=== PATIENT | female | born 1965 | race Asian ===

== ENCOUNTER 2019-04-30 20:14 | Inpatient (IN) | payer MEDICAID ==
[~2019-04-30] VITALS: Ht 167.6 cm; Wt 182.5 kg
[2019-04-30] MEDS ORDERED: DILTIAZEM HCL 5MG/ML 5ML VIAL IV ONE ×2 (21:00→21:45)
[2019-04-30 21:28] LABS: BASOPHILS % 0.5 % (0.0-2.0); EOSINOPHILS % 0.3 % (0.0-5.0); HEMATOCRIT. 52.3 % (36.0-48.0); HEMOGLOBIN. 16.8 g/dL (12.0-16.0); LYMPHOCYTES % 9.1 % (20.0-50.0); MEAN CORPUSCULAR HEMOGLOBIN 27.3 pg (28.0-32.0); MEAN PLATELET VOLUME 8.9 fl (7.4-10.4); NEUTROPHILS % 78.1 % (40.0-76.0); PLATELET 161 x1000/uL (130-400); RED BLOOD CELL COUNT 6.16 mill/uL (4.2-5.4); RED CELL DISTRIBUTION WIDTH 18.9 % (11.6-14.6)
[2019-04-30 21:33] LABS: CHLORIDE 97 mEq/L (98-107)
[2019-04-30] MEDS ORDERED: DILTIAZEM HCL 125 MG in DEXT 5% WATER 100 ML IV ONE ×2 (21:45→22:00)
[2019-04-30] MEDS ORDERED: ASPIRIN 81MG TABLET PO SCH (23:32)
[2019-04-30] MEDS ORDERED: METOPROLOL TARTRATE 5MG/5ML VIAL IV STA (23:37)
[2019-04-30] MEDS ORDERED: SODIUM CHLORIDE 0.9% 500 ML IV ONE (23:45)
[2019-04-30] MEDS ORDERED: DIGOXIN 500MCG/2ML AMP IV ONE (23:45)
[2019-05-01] VITALS (69 sets, daily range): BP systolic 98–195; BP diastolic 49–135
[2019-05-01] MEDS ORDERED: DILT30TA38 MT (04:03)
[2019-05-01] MEDS ORDERED: ASPI-1393 PO (04:03)
[2019-05-01] MEDS ORDERED: FERR-71 PO (04:03)
[2019-05-01] MEDS ORDERED: FUROSEMIDE 40MG/4ML VIAL IVP SCH (05:30)
[2019-05-01 08:35] LABS: HEMOGLOBIN. 15.6 g/dL (12.0-16.0); MEAN CORPUSCULAR HEMOGLOBIN 27.4 pg (28.0-32.0); MEAN CORPUSCULAR VOLUME 86.2 fL (81.0-99.0); MEAN PLATELET VOLUME 8.9 fl (7.4-10.4); PLATELET 145 x1000/uL (130-400); RED BLOOD CELL COUNT 5.69 mill/uL (4.2-5.4); RED CELL DISTRIBUTION WIDTH 18.6 % (11.6-14.6)
[2019-05-01 08:38] LABS: INR 1.4; PROTHROMBIN TIME 14.7 sec (9.6-11.0)
[2019-05-01 08:41] LABS: CHLORIDE 98 mEq/L (98-107)
[2019-05-01] MEDS: FUROSEMIDE 40MG/4ML VIAL IVP SCH ×2 (08:49→17:22)
[2019-05-01 08:51] LABS: LDL CHOLESTEROL 81 mg/dL (5-100)
[2019-05-01 08:54] LABS: CREATINE KINASE 81 IU/L (26-192); CREATINE KINASE MB FRACTION 2.1 ng/mL (0.5-3.6); HDL CHOLESTEROL 24 mg/dL (40-59)
[2019-05-01] MEDS ORDERED: ENOXAPARIN 30MG/0.3ML SYR SUBCUT SCH (09:00)
[2019-05-01] MEDS ORDERED: METOPROLOL TARTRATE 25MG TABLET PO SCH (09:00)
[2019-05-01 13:31] LABS: NUCLEATED RED BLOOD CELLS 2 /100 WBC
[2019-05-01 13:32] LABS: PLATELET ESTIMATE NORMAL
[2019-05-01] MEDS: DILTIAZEM HCL 125 MG in DEXT 5% WATER 100 ML IV PRN (15:12)
[2019-05-01 17:33] LABS: BG BASE EXCESS 5.2 mmol/L (-2.0-2.0); BG CARBOXYHEMOGLOBIN 1.5 % (0.5-1.5); BG DEOXYHEMOGLOBIN 3.6 % (0.0-5.0); BG FRACTION INSPIRED OXYGEN 80; BG HCO3 ACT 39.7 mmol/L (22.0-26.0); BG METHEMOGLOBIN 0.6 % (0.0-1.5); BG OXYGEN SATURATION 96.3 % (92.0-98.5); BG OXYHEMOGLOBIN 94.3 % (94.0-97.0); BG PH 7.138 (7.350-7.450); BG PO2 98.3 mmHg (75.0-100.0); BG SAMPLE SITE RIGHT RADIAL; BG TOTAL HEMOGLOBIN 16.5 g/dL (12.0-18.0); BG VENT MODE MASK - SIMPLE
[2019-05-01] MEDS: METOPROLOL TARTRATE 50MG TABLET PO SCH (20:05)
[2019-05-01 20:08] LABS: BG BASE EXCESS 3.9 mmol/L (-2.0-2.0); BG BILEVEL POS AIRWAY PRESSURE 20/5; BG CARBOXYHEMOGLOBIN 1.7 % (0.5-1.5); BG DEOXYHEMOGLOBIN 0.8 % (0.0-5.0); BG FRACTION INSPIRED OXYGEN 50; BG HCO3 ACT 31.2 mmol/L (22.0-26.0); BG METHEMOGLOBIN 0.5 % (0.0-1.5); BG OXYGEN SATURATION 99.2 % (92.0-98.5); BG PCO2 57.6 mmHg (35.0-45.0); BG PH 7.352 (7.350-7.450); BG PO2 148.7 mmHg (75.0-100.0); BG SAMPLE SITE RIGHT RADIAL; BG TOTAL HEMOGLOBIN 15.5 g/dL (12.0-18.0); BG VENT MODE MASK - BIPAP; BG VENT RATE 22 set
[2019-05-01] MEDS ORDERED: NOREPINEPHRINE 16 MG in DEXT 5% WATER 234 ML IV PRN (20:45)
[2019-05-01] MEDS ORDERED: PROPOFOL 10MG/ML 100ML 100 ML IV PRN (20:45)
[2019-05-01] MEDS: ENOXAPARIN 40MG/0.4ML SYR SUBCUT SCH (21:37)
[2019-05-02] VITALS (98 sets, daily range): BP systolic 66–160; BP diastolic 28–132
[2019-05-02 02:31] LABS: BG BASE EXCESS 6.2 mmol/L (-2.0-2.0); BG BILEVEL POS AIRWAY PRESSURE 20/5; BG CARBOXYHEMOGLOBIN 2.2 % (0.5-1.5); BG DEOXYHEMOGLOBIN 1.9 % (0.0-5.0); BG FRACTION INSPIRED OXYGEN 50; BG HCO3 ACT 36.8 mmol/L (22.0-26.0); BG METHEMOGLOBIN 0.5 % (0.0-1.5); BG OXYHEMOGLOBIN 95.4 % (94.0-97.0); BG PCO2 83.3 mmHg (35.0-45.0); BG PH 7.263 (7.350-7.450); BG PO2 106.7 mmHg (75.0-100.0); BG SAMPLE SITE RIGHT RADIAL; BG TOTAL HEMOGLOBIN 15.6 g/dL (12.0-18.0); BG VENT MODE MASK - BIPAP; BG VENT RATE 22 set
[2019-05-02] MEDS: DILTIAZEM HCL 125 MG in DEXT 5% WATER 100 ML IV PRN ×2 (05:17→23:38)
[2019-05-02 05:40] LABS: HEMATOCRIT. 46.4 % (36.0-48.0); HEMOGLOBIN. 14.7 g/dL (12.0-16.0); MEAN CORPUSCULAR HEMOGLOBIN 27.4 pg (28.0-32.0); MEAN CORPUSCULAR VOLUME 86.2 fL (81.0-99.0); MEAN PLATELET VOLUME 9.8 fl (7.4-10.4); PLATELET 135 x1000/uL (130-400); RED BLOOD CELL COUNT 5.38 mill/uL (4.2-5.4); RED CELL DISTRIBUTION WIDTH 18.7 % (11.6-14.6)
[2019-05-02 07:58] LABS: BG BILEVEL POS AIRWAY PRESSURE 20/5; BG CARBOXYHEMOGLOBIN 1.8 % (0.5-1.5); BG FRACTION INSPIRED OXYGEN 50; BG HCO3 ACT 38.8 mmol/L (22.0-26.0); BG METHEMOGLOBIN 0.6 % (0.0-1.5); BG OXYHEMOGLOBIN 96.6 % (94.0-97.0); BG PH 7.277 (7.350-7.450); BG PO2 144.8 mmHg (75.0-100.0); BG SAMPLE SITE RIGHT RADIAL; BG TOTAL HEMOGLOBIN 15.7 g/dL (12.0-18.0); BG VENT MODE MASK - BIPAP; BG VENT RATE 22 set
[2019-05-02] MEDS: FUROSEMIDE 40MG/4ML VIAL IVP SCH ×2 (08:16→16:11)
[2019-05-02] MEDS: ENOXAPARIN 40MG/0.4ML SYR SUBCUT SCH ×2 (08:17→22:16)
[2019-05-02] MEDS: METOPROLOL TARTRATE 50MG TABLET PO SCH ×2 (08:17→21:00)
[2019-05-02 08:27] LABS: NUCLEATED RED BLOOD CELLS 1 /100 WBC
[2019-05-02 08:28] LABS: PLATELET ESTIMATE NORMAL
[2019-05-02] MEDS ORDERED: IPRATROPIUM BROMIDE (0.02%) 0.5MG/2.5ML NEB HHN PRN (10:00)
[2019-05-02 11:31] LABS: BG BASE EXCESS 11.1 mmol/L (-2.0-2.0); BG BILEVEL POS AIRWAY PRESSURE 20/5; BG CARBOXYHEMOGLOBIN 1.3 % (0.5-1.5); BG DEOXYHEMOGLOBIN 1.4 % (0.0-5.0); BG FRACTION INSPIRED OXYGEN 35; BG HCO3 ACT 41.2 mmol/L (22.0-26.0); BG METHEMOGLOBIN 0.2 % (0.0-1.5); BG OXYGEN SATURATION 98.6 % (92.0-98.5); BG OXYHEMOGLOBIN 97.1 % (94.0-97.0); BG PCO2 81.4 mmHg (35.0-45.0); BG PH 7.322 (7.350-7.450); BG PO2 128.8 mmHg (75.0-100.0); BG SAMPLE SITE RIGHT RADIAL; BG TOTAL HEMOGLOBIN 15.3 g/dL (12.0-18.0); BG VENT MODE MASK - BIPAP; BG VENT RATE 22 set
[2019-05-02] MEDS: IPRATROPIUM BROMIDE (0.02%) 0.5MG/2.5ML NEB HHN SCH ×2 (15:56→20:44)
[2019-05-03] VITALS (100 sets, daily range): BP systolic 72–147; BP diastolic 17–94
[2019-05-03] MEDS: IPRATROPIUM BROMIDE (0.02%) 0.5MG/2.5ML NEB HHN SCH ×4 (02:23→20:06)
[2019-05-03 05:28] LABS: BASOPHILS % 0.5 % (0.0-2.0); HEMATOCRIT. 44.8 % (36.0-48.0); HEMOGLOBIN. 14.2 g/dL (12.0-16.0); LYMPHOCYTES % 15.2 % (20.0-50.0); MEAN CORPUSCULAR VOLUME 84.9 fL (81.0-99.0); MEAN PLATELET VOLUME 9.5 fl (7.4-10.4); MONOCYTES % 13.9 % (2.0-8.0); NEUTROPHILS % 68.4 % (40.0-76.0); PLATELET 127 x1000/uL (130-400); RED BLOOD CELL COUNT 5.28 mill/uL (4.2-5.4); RED CELL DISTRIBUTION WIDTH 18.4 % (11.6-14.6)
[2019-05-03 05:51] LABS: PHOSPHORUS 2.5 mg/dL (2.5-4.9)
[2019-05-03] MEDS: ENOXAPARIN 40MG/0.4ML SYR SUBCUT SCH (09:10)
[2019-05-03] MEDS: METOPROLOL TARTRATE 50MG TABLET PO SCH ×2 (09:11→20:32)
[2019-05-03] MEDS: FUROSEMIDE 40MG/4ML VIAL IVP SCH (09:11)
[2019-05-03 09:54] LABS: BG BASE EXCESS 9.9 mmol/L (-2.0-2.0); BG CARBOXYHEMOGLOBIN 1.7 % (0.5-1.5); BG DEOXYHEMOGLOBIN 5.8 % (0.0-5.0); BG FRACTION INSPIRED OXYGEN 40; BG HCO3 ACT 36.8 mmol/L (22.0-26.0); BG METHEMOGLOBIN 0.5 % (0.0-1.5); BG OXYGEN SATURATION 94.1 % (92.0-98.5); BG PCO2 57.3 mmHg (35.0-45.0); BG PH 7.425 (7.350-7.450); BG PO2 68.6 mmHg (75.0-100.0); BG SAMPLE SITE RIGHT RADIAL; BG VENT MODE NASAL CANNULA
[2019-05-03] MEDS: DILTIAZEM HCL 125 MG in DEXT 5% WATER 100 ML IV PRN (11:58)
[2019-05-03] MEDS ORDERED: ENOXAPARIN 120MG/0.8ML SYR SUBCUT NR (15:30)
[2019-05-03] MEDS: FUROSEMIDE 100MG/10ML VIAL IV SCH (17:08)
[2019-05-03] MEDS: ENOXAPARIN 150MG/ML SYR SUBCUT SCH (20:33)
[2019-05-04] VITALS (93 sets, daily range): BP systolic 50–174; BP diastolic 19–129
[2019-05-04] MEDS: IPRATROPIUM BROMIDE (0.02%) 0.5MG/2.5ML NEB HHN SCH ×4 (02:23→20:00)
[2019-05-04 04:56] LABS: BASOPHILS % 0.9 % (0.0-2.0); HEMATOCRIT. 46.7 % (36.0-48.0); LYMPHOCYTES % 17.6 % (20.0-50.0); MEAN CORPUSCULAR HEMOGLOBIN 27.2 pg (28.0-32.0); MEAN CORPUSCULAR VOLUME 84.6 fL (81.0-99.0); MONOCYTES % 13.9 % (2.0-8.0); NEUTROPHILS % 63.6 % (40.0-76.0); PLATELET 140 x1000/uL (130-400); RED BLOOD CELL COUNT 5.52 mill/uL (4.2-5.4); RED CELL DISTRIBUTION WIDTH 18.6 % (11.6-14.6)
[2019-05-04 05:00] LABS: CHLORIDE 90 mEq/L (98-107)
[2019-05-04] MEDS: FUROSEMIDE 100MG/10ML VIAL IV SCH ×2 (09:15→18:26)
[2019-05-04] MEDS: ENOXAPARIN 150MG/ML SYR SUBCUT SCH (09:16)
[2019-05-04] MEDS: METOPROLOL TARTRATE 50MG TABLET PO SCH (09:16)
[2019-05-04] MEDS: DILTIAZEM HCL 125 MG in DEXT 5% WATER 100 ML IV PRN (10:33)
[2019-05-04] MEDS: DILTIAZEM HCL 60MG TABLET PO SCH ×2 (18:27→23:33)
[2019-05-05] VITALS (44 sets, daily range): BP systolic 96–194; BP diastolic 25–130
[2019-05-05] MEDS: IPRATROPIUM BROMIDE (0.02%) 0.5MG/2.5ML NEB HHN SCH ×4 (04:00→20:40)
[2019-05-05 05:21] LABS: HEMATOCRIT. 49.4 % (36.0-48.0); HEMOGLOBIN. 15.8 g/dL (12.0-16.0); MEAN CORPUSCULAR HEMOGLOBIN 27.1 pg (28.0-32.0); MEAN CORPUSCULAR VOLUME 84.6 fL (81.0-99.0); MEAN PLATELET VOLUME 9.1 fl (7.4-10.4); PLATELET 149 x1000/uL (130-400); RED BLOOD CELL COUNT 5.84 mill/uL (4.2-5.4); RED CELL DISTRIBUTION WIDTH 18.2 % (11.6-14.6)
[2019-05-05] MEDS: DILTIAZEM HCL 60MG TABLET PO SCH ×4 (05:40→23:54)
[2019-05-05 08:49] LABS: PLATELET ESTIMATE NORMAL
[2019-05-05] MEDS: FUROSEMIDE 100MG/10ML VIAL IV SCH ×2 (10:16→17:20)
[2019-05-05] MEDS: APIXABAN 5 MG TABLET PO SCH (20:17)
[2019-05-06] VITALS (14 sets, daily range): BP systolic 107–154; BP diastolic 53–89
[2019-05-06] MEDS: IPRATROPIUM BROMIDE (0.02%) 0.5MG/2.5ML NEB HHN SCH ×4 (02:19→20:11)
[2019-05-06 05:45] LABS: BASOPHILS % 0.6 % (0.0-2.0); EOSINOPHILS % 5.9 % (0.0-5.0); HEMATOCRIT. 50.6 % (36.0-48.0); HEMOGLOBIN. 16.2 g/dL (12.0-16.0); LYMPHOCYTES % 22.1 % (20.0-50.0); MEAN CORPUSCULAR HEMOGLOBIN 27.1 pg (28.0-32.0); MEAN CORPUSCULAR VOLUME 84.9 fL (81.0-99.0); MEAN PLATELET VOLUME 9.2 fl (7.4-10.4); MONOCYTES % 12.9 % (2.0-8.0); NEUTROPHILS % 58.5 % (40.0-76.0); PLATELET 149 x1000/uL (130-400); RED BLOOD CELL COUNT 5.97 mill/uL (4.2-5.4); RED CELL DISTRIBUTION WIDTH 18.1 % (11.6-14.6)
[2019-05-06 05:48] LABS: CHLORIDE 87 mEq/L (98-107)
[2019-05-06] MEDS: DILTIAZEM HCL 60MG TABLET PO SCH (06:29)
[2019-05-06] MEDS: FUROSEMIDE 100MG/10ML VIAL IV SCH ×2 (08:33→16:08)
[2019-05-06] MEDS: APIXABAN 5 MG TABLET PO SCH ×2 (08:33→20:56)
[2019-05-06] MEDS ORDERED: DILTIAZEM HCL 300MG CAPSULE SR 24HR PO SCH (09:00)
[2019-05-06] MEDS ORDERED: APIX5TAB PO (09:46)
[2019-05-06] MEDS ORDERED: DILT300C35 PO (09:46)
[2019-05-06] MEDS ORDERED: FURO40TA5 MT ×2 (09:46→10:30)
[2019-05-06] MEDS: DILTIAZEM HCL 180MG CAPSULE CD 24HR PO SCH (11:26)
[2019-05-07] VITALS: BP 136/92
[2019-05-07] MEDS: IPRATROPIUM BROMIDE (0.02%) 0.5MG/2.5ML NEB HHN SCH ×4 (01:31→20:11)
[2019-05-07 02:00] VITALS: BP 136/91
[2019-05-07 04:00] VITALS: BP 119/61
[2019-05-07 08:00] VITALS: BP 128/60
[2019-05-07] MEDS: FUROSEMIDE 100MG/10ML VIAL IV SCH ×2 (09:22→19:24)
[2019-05-07] MEDS: APIXABAN 5 MG TABLET PO SCH ×2 (09:22→22:02)
[2019-05-07] MEDS: DILTIAZEM HCL 180MG CAPSULE CD 24HR PO SCH (09:27)
[2019-05-07 20:27] VITALS: BP 123/71
[2019-05-07 22:00] VITALS: BP 113/72
[2019-05-08] VITALS (12 sets, daily range): BP systolic 116–143; BP diastolic 68–95
[2019-05-08] MEDS: IPRATROPIUM BROMIDE (0.02%) 0.5MG/2.5ML NEB HHN SCH ×4 (01:46→19:48)
[2019-05-08] MEDS: APIXABAN 5 MG TABLET PO SCH ×2 (09:03→20:29)
[2019-05-08] MEDS: FUROSEMIDE 100MG/10ML VIAL IV SCH ×2 (09:03→17:14)
[2019-05-08] MEDS: DILTIAZEM HCL 180MG CAPSULE CD 24HR PO SCH (09:06)
[2019-05-08] MEDS ORDERED: DIGOXIN 500MCG/2ML AMP IV NR (12:15)
[2019-05-09] VITALS (13 sets, daily range): BP systolic 101–155; BP diastolic 45–115
[2019-05-09] MEDS: IPRATROPIUM BROMIDE (0.02%) 0.5MG/2.5ML NEB HHN SCH ×4 (01:10→21:54)
[2019-05-09] MEDS: FUROSEMIDE 100MG/10ML VIAL IV SCH ×2 (08:17→17:01)
[2019-05-09] MEDS: APIXABAN 5 MG TABLET PO SCH ×2 (08:19→20:40)
[2019-05-09] MEDS: DILTIAZEM HCL 180MG CAPSULE CD 24HR PO SCH (08:19)
[2019-05-09] MEDS ORDERED: DIGOXIN 500MCG/2ML AMP IV ONE (12:45)
[2019-05-09] MEDS: DILTIAZEM HCL 120MG CAPSULE CD 24HR PO SCH (20:41)
[2019-05-10] VITALS (11 sets, daily range): BP systolic 90–157; BP diastolic 63–92
[2019-05-10] MEDS: IPRATROPIUM BROMIDE (0.02%) 0.5MG/2.5ML NEB HHN SCH ×4 (02:21→20:20)
[2019-05-10 06:51] LABS: BASOPHILS % 0.6 % (0.0-2.0); EOSINOPHILS % 3.3 % (0.0-5.0); HEMATOCRIT. 53.7 % (36.0-48.0); HEMOGLOBIN. 17.2 g/dL (12.0-16.0); MEAN CORPUSCULAR HEMOGLOBIN 27.2 pg (28.0-32.0); MEAN CORPUSCULAR VOLUME 84.6 fL (81.0-99.0); MEAN PLATELET VOLUME 9.5 fl (7.4-10.4); MONOCYTES % 11.2 % (2.0-8.0); NEUTROPHILS % 67.9 % (40.0-76.0); PLATELET 180 x1000/uL (130-400); RED BLOOD CELL COUNT 6.34 mill/uL (4.2-5.4)
[2019-05-10] MEDS: FUROSEMIDE 100MG/10ML VIAL IV SCH ×2 (08:52→17:21)
[2019-05-10] MEDS: DILTIAZEM HCL 120MG CAPSULE CD 24HR PO SCH ×2 (08:54→21:28)
[2019-05-10] MEDS: APIXABAN 5 MG TABLET PO SCH ×2 (08:54→21:27)
[2019-05-11] VITALS: BP 133/88
== END 2019-05-11 00:29 | DRG 133 ==
LOC: ER 21:42 → MICUNO 23:39 → EDBEDREQSVC 23:42 → EDBEDREQTM 23:42 → ENRESERV 23:52 → 3WST 05-06 05:29
PROVIDERS: ADMIT Internal Medicine; ATTEND Internal Medicine
PROC: 5A09357 Assistance with Respiratory Ventilation, Less than 24 Consecutive Hours, Continuous Positive Airway Pressure (ICD-10-PCS; principal; 2019-05-01)
PROC: 5A09357 Assistance with Respiratory Ventilation, Less than 24 Consecutive Hours, Continuous Positive Airway Pressure (ICD-10-PCS; 2019-05-02)
PROC: 5A09357 Assistance with Respiratory Ventilation, Less than 24 Consecutive Hours, Continuous Positive Airway Pressure (ICD-10-PCS; 2019-05-03)
PROC: 5A09357 Assistance with Respiratory Ventilation, Less than 24 Consecutive Hours, Continuous Positive Airway Pressure (ICD-10-PCS; 2019-05-04)
PROC: 5A09357 Assistance with Respiratory Ventilation, Less than 24 Consecutive Hours, Continuous Positive Airway Pressure (ICD-10-PCS; 2019-05-05)
PROC: 5A09357 Assistance with Respiratory Ventilation, Less than 24 Consecutive Hours, Continuous Positive Airway Pressure (ICD-10-PCS; 2019-05-06)
DX: J96.02 Acute respiratory failure with hypercapnia (principal); I50.33 Acute on chronic diastolic (congestive) heart failure; E87.2 Acidosis; I27.20 Pulmonary hypertension, unspecified; D68.9 Coagulation defect, unspecified; E66.2 Morbid (severe) obesity with alveolar hypoventilation; I47.1 Supraventricular tachycardia; D64.9 Anemia, unspecified; E80.6 Other disorders of bilirubin metabolism; R20.0 Anesthesia of skin; I48.2 Chronic atrial fibrillation; M19.90 Unspecified osteoarthritis, unspecified site; N92.0 Excessive and frequent menstruation with regular cycle; Z82.49 Family history of ischemic heart disease and other diseases of the circulatory system; Z79.899 Other long term (current) drug therapy; Z68.44 Body mass index [BMI] 60.0-69.9, adult
CPT/HCPCS: 36415; 36600; 71045; 78580; 80048; 80061; 82375; 82550; 82553; 82805; 83735; 83880; 84100; 84443; 84484; 85379; 93005; 93306; 93970; 94640; 94660; 96365; 96375; 96376; 97110; 97162; 97166; 97530; 97535; 99285; J1160; J1650; J1940; J3490; J7060; A4315

== ENCOUNTER 2019-06-13 15:32 | Inpatient (IN) | payer MEDICAID ==
[~2019-06-13] VITALS: Ht 167.6 cm; Wt 196.0 kg
[~2019-06-13 15:32] MED LIST: APIX5TAB PO; DILT300C35 PO; FURO40TA5 MT
[2019-06-13 19:30] LABS: CHLORIDE 97 mEq/L (98-107)
[2019-06-13 19:31] LABS: BASOPHILS % 0.8 % (0.0-2.0); EOSINOPHILS % 2.1 % (0.0-5.0); HEMATOCRIT. 43.3 % (36.0-48.0); LYMPHOCYTES % 23.6 % (20.0-50.0); MEAN CORPUSCULAR HEMOGLOBIN 27.5 pg (28.0-32.0); MEAN PLATELET VOLUME 8.9 fl (7.4-10.4); MONOCYTES % 6.2 % (2.0-8.0); NEUTROPHILS % 67.3 % (40.0-76.0); PLATELET 229 x1000/uL (130-400); RED CELL DISTRIBUTION WIDTH 17.2 % (11.6-14.6)
[2019-06-13 19:32] LABS: INR 1.1; PARTIAL THROMBOPLASTIN TIME 30.2 sec (23.4-31.0); PROTHROMBIN TIME 11.1 sec (9.6-11.0)
[2019-06-13 19:41] LABS: B-HCG QUANTITATIVE < 1 mIU/mL (<3)
[2019-06-13] MEDS ORDERED: HYDROCODONE/ACETAMINOPHEN 5/325MG TABLET PO PRN (22:00)
[2019-06-13] MEDS ORDERED: ONDANSETRON HCL 4MG/2ML INJ IV PRN (22:00)
[2019-06-13] MEDS ORDERED: MAGNESIUM/ALUMINUM HYDROXIDE/SIMETHICONE 30ML UDC PO PRN (22:00)
[2019-06-13] MEDS ORDERED: CLONIDINE 0.1MG TABLET PO PRN (22:00)
[2019-06-13] MEDS ORDERED: IPRATROPIUM/ALBUTEROL 0.5-3(2.5)MG/3ML NEB NEB PRN (22:00)
[2019-06-13] MEDS ORDERED: ACETAMINOPHEN 325MG TABLET PO PRN (22:00)
[2019-06-13] MEDS ORDERED: DOCUSATE SODIUM 100MG CAPSULE PO PRN (22:00)
[2019-06-14] VITALS: BP 111/78
[2019-06-14] MEDS ORDERED: IPRA3AMP9 HHN (01:15)
[2019-06-14] MEDS ORDERED: FURO20TA4 PO (01:15)
[2019-06-14] MEDS ORDERED: DILT120T13 PO (01:15)
[2019-06-14 01:30] LABS: CHLORIDE 97 mEq/L (98-107)
[2019-06-14 01:36] LABS: TOTAL IRON BINDING CAPACITY 328 ug/dL (250-450)
[2019-06-14 01:38] LABS: CREATINE KINASE 94 IU/L (26-192)
[2019-06-14 01:41] LABS: CREATINE KINASE MB FRACTION 1.6 ng/mL (0.5-3.6)
[2019-06-14] MEDS ORDERED: FERR325T6 PO (01:47)
[2019-06-14 04:00] VITALS: BP 108/77
[2019-06-14 07:00] LABS: BASOPHILS % 0.6 % (0.0-2.0); EOSINOPHILS % 2.2 % (0.0-5.0); HEMATOCRIT. 43.8 % (36.0-48.0); HEMOGLOBIN. 14.1 g/dL (12.0-16.0); LYMPHOCYTES % 26.3 % (20.0-50.0); MEAN CORPUSCULAR HEMOGLOBIN 27.7 pg (28.0-32.0); MONOCYTES % 9.7 % (2.0-8.0); NEUTROPHILS % 61.2 % (40.0-76.0); PLATELET 223 x1000/uL (130-400); RED BLOOD CELL COUNT 5.09 mill/uL (4.2-5.4); RED CELL DISTRIBUTION WIDTH 16.7 % (11.6-14.6)
[2019-06-14 08:00] VITALS: BP 106/60
[2019-06-14 08:41] LABS: LDL CHOLESTEROL 96 mg/dL (5-100)
[2019-06-14 08:43] LABS: CREATINE KINASE 93 IU/L (26-192); HDL CHOLESTEROL 32 mg/dL (40-59)
[2019-06-14 08:45] LABS: CREATINE KINASE MB FRACTION 1.6 ng/mL (0.5-3.6)
[2019-06-14] MEDS ORDERED: DIGOXIN 500MCG/2ML AMP IV NR (09:30)
[2019-06-14 11:07] LABS: T4 FREE 1.12 ng/dL (0.76-1.46)
[2019-06-14 12:00] VITALS: BP 110/62
[2019-06-14] MEDS: FUROSEMIDE 20MG TABLET PO SCH ×2 (12:57→18:19)
[2019-06-14] MEDS: FERROUS SULFATE 325MG TABLET PO SCH (12:57)
[2019-06-14] MEDS: DILTIAZEM HCL 60MG TABLET PO SCH ×2 (12:58→18:20)
[2019-06-14 16:00] VITALS: BP 115/72
[2019-06-14 16:25] LABS: BASOPHILS % 0.7 % (0.0-2.0); EOSINOPHILS % 1.8 % (0.0-5.0); HEMATOCRIT. 46.1 % (36.0-48.0); LYMPHOCYTES % 21.4 % (20.0-50.0); MEAN CORPUSCULAR HEMOGLOBIN 27.5 pg (28.0-32.0); MEAN CORPUSCULAR VOLUME 84.9 fL (81.0-99.0); MEAN PLATELET VOLUME 9.2 fl (7.4-10.4); MONOCYTES % 6.2 % (2.0-8.0); NEUTROPHILS % 69.9 % (40.0-76.0); PLATELET 254 x1000/uL (130-400); RED BLOOD CELL COUNT 5.44 mill/uL (4.2-5.4); RED CELL DISTRIBUTION WIDTH 17.3 % (11.6-14.6)
[2019-06-14 16:34] LABS: CREATINE KINASE 94 IU/L (26-192)
[2019-06-14 16:35] LABS: CREATINE KINASE MB FRACTION 1.7 ng/mL (0.5-3.6)
[2019-06-14 20:00] VITALS: BP 115/74
[2019-06-15] VITALS: BP 101/67
[2019-06-15 01:10] LABS: BASOPHILS % 0.8 % (0.0-2.0); EOSINOPHILS % 2.3 % (0.0-5.0); HEMATOCRIT. 45.3 % (36.0-48.0); HEMOGLOBIN. 14.8 g/dL (12.0-16.0); LYMPHOCYTES % 25.2 % (20.0-50.0); MEAN CORPUSCULAR HEMOGLOBIN 27.9 pg (28.0-32.0); MEAN CORPUSCULAR VOLUME 85.1 fL (81.0-99.0); MEAN PLATELET VOLUME 9.5 fl (7.4-10.4); MONOCYTES % 8.6 % (2.0-8.0); NEUTROPHILS % 63.1 % (40.0-76.0); PLATELET 235 x1000/uL (130-400); RED BLOOD CELL COUNT 5.32 mill/uL (4.2-5.4); RED CELL DISTRIBUTION WIDTH 17.3 % (11.6-14.6)
[2019-06-15 02:20] LABS: CREATINE KINASE 103 IU/L (26-192)
[2019-06-15 02:21] LABS: CREATINE KINASE MB FRACTION 1.5 ng/mL (0.5-3.6)
[2019-06-15 04:00] VITALS: BP 107/45
[2019-06-15] MEDS: DILTIAZEM HCL 60MG TABLET PO SCH ×4 (05:25→17:53)
[2019-06-15 07:53] LABS: CREATINE KINASE 112 IU/L (26-192)
[2019-06-15 07:55] LABS: CREATINE KINASE MB FRACTION 1.7 ng/mL (0.5-3.6)
[2019-06-15 08:00] VITALS: BP 109/79
[2019-06-15] MEDS: FUROSEMIDE 20MG TABLET PO SCH ×2 (09:56→17:53)
[2019-06-15] MEDS: FERROUS SULFATE 325MG TABLET PO SCH (09:56)
[2019-06-15 12:00] VITALS: BP 114/69
[2019-06-15 16:00] VITALS: BP 101/69
[2019-06-15 20:00] VITALS: BP 100/65
[2019-06-16] VITALS (8 sets, daily range): BP systolic 90–115; BP diastolic 48–79
[2019-06-16] MEDS: DILTIAZEM HCL 60MG TABLET PO SCH ×2 (06:00)
[2019-06-16 06:40] LABS: HEMATOCRIT. 43.7 % (36.0-48.0); HEMOGLOBIN. 14.3 g/dL (12.0-16.0); MEAN CORPUSCULAR HEMOGLOBIN 27.8 pg (28.0-32.0); MEAN PLATELET VOLUME 8.8 fl (7.4-10.4); PLATELET 241 x1000/uL (130-400); RED BLOOD CELL COUNT 5.14 mill/uL (4.2-5.4); RED CELL DISTRIBUTION WIDTH 16.7 % (11.6-14.6)
[2019-06-16 06:51] LABS: CHLORIDE 98 mEq/L (98-107)
[2019-06-16 08:04] LABS: PLATELET ESTIMATE NORMAL
[2019-06-16] MEDS ORDERED: DILTIAZEM HCL 300MG CAPSULE SR 24HR PO SCH (09:00)
[2019-06-16] MEDS ORDERED: ASPIRIN 81MG EC TABLET PO SCH (09:00)
[2019-06-16] MEDS: FERROUS SULFATE 325MG TABLET PO SCH (09:21)
[2019-06-16] MEDS: FUROSEMIDE 20MG TABLET PO SCH ×2 (09:21→16:18)
[2019-06-16] MEDS ORDERED: ASPI-1158 PO (11:31)
[2019-06-17] VITALS: BP 114/72
[2019-06-17 04:00] VITALS: BP 102/67
[2019-06-17 08:00] VITALS: BP 106/65
== END 2019-06-17 08:53 | DRG 532 ==
LOC: ER 15:32 → 7WST 20:57 → EDBEDREQTM 21:04 → EDBEDREQ 21:04 → ENRESERV 22:13
PROVIDERS: ADMIT Internal Medicine; ATTEND Internal Medicine
DX: D25.9 Leiomyoma of uterus, unspecified (principal); I11.0 Hypertensive heart disease with heart failure; E66.2 Morbid (severe) obesity with alveolar hypoventilation; I50.32 Chronic diastolic (congestive) heart failure; Z68.44 Body mass index [BMI] 60.0-69.9, adult; I48.20 Chronic atrial fibrillation, unspecified; E78.5 Hyperlipidemia, unspecified; G89.29 Other chronic pain; M19.90 Unspecified osteoarthritis, unspecified site; N93.8 Other specified abnormal uterine and vaginal bleeding
CPT/HCPCS: 36415; 76830; 76856; 80048; 80061; 82550; 82553; 83036; 83540; 83550; 83880; 84439; 84443; 84484; 84702; 85379; 86850; 86900; 93005; 93306; 93970; 96374; 99285; J1160